=== PATIENT | female | born 1980 | race Caucasian/White ===

== ENCOUNTER 2016-07-30 20:46 | Emergency (ER) | payer MEDICAID | END 2016-07-30 21:05 | disposition left against medical advice (07) | LOC: ER 20:46 | DX: Z53.21 Procedure and treatment not carried out due to patient leaving prior to being seen by health care provider (principal) ==

== ENCOUNTER 2016-08-30 21:04 | Emergency (ER) | payer MEDICAID | END 2016-08-31 00:24 | disposition home or self-care (01) | LOC: ER 21:04 | DX: O26.891 Other specified pregnancy related conditions, first trimester (principal); O99.331 Smoking (tobacco) complicating pregnancy, first trimester; J20.9 Acute bronchitis, unspecified; R07.89 Other chest pain; F17.200 Nicotine dependence, unspecified, uncomplicated; Z3A.13 13 weeks gestation of pregnancy; Z79.82 Long term (current) use of aspirin | CPT/HCPCS: 36415; 71020; 80053; 82553; 84484; 85025; 85379; 87804; 93005 ==